=== PATIENT | female | born 1995 | race Caucasian/White ===

== ENCOUNTER 2022-05-17 20:16 | Emergency (ER) | payer BC, MEDICAID ==
[~2022-05-17] VITALS: Ht 160 cm; Wt 59.1 kg
[~2022-05-17 20:16] MED LIST: NO HOME MEDS
[2022-05-17 20:28] VITALS: BP 146/92
--- NOTE | 2022-05-17 21:22 | NUR ---
pt continues to scream and will not be quiet. She has been constantly redirected to keep her voice down. She continues to scream "give me one call!!" She has been told constantly that when she gets to the [facility]. She keeps saying she is in the medical field and should not be in hand cuffs. Informed her that she is in police custody and this is standard procedure.
== END 2022-05-17 21:29 ==
LOC: ER 20:16
DX: J45.909 Unspecified asthma, uncomplicated; Z88.1 Allergy status to other antibiotic agents; Z79.899 Other long term (current) drug therapy; V98.8XXA Other specified transport accidents, initial encounter; Y93.89 Activity, other specified; Y92.89 Other specified places as the place of occurrence of the external cause; Y99.8 Other external cause status
CPT/HCPCS: 99283